=== PATIENT | female | born 1965 | race Caucasian/White ===

== ENCOUNTER 2023-08-08 12:54 | Emergency (ER) | payer OTHER ==
[2023-08-08 13:02] VITALS: BP 124/69; PULSE 78; RESP 16; TEMP 97.9; BMI 32.9
[2023-08-08] MEDS ORDERED: HYDROmorphone HCL/PF 1 MG/ML VIAL ONE (13:40)
[2023-08-08] MEDS ORDERED: LIDOCAINE HCL 1%, 10 MG/ML (20ML VIAL) ONE (13:41)
[2023-08-08] MEDS: HYDROmorphone HCl 2 MG/ML VIAL IVPUSH ONE (13:50)
[2023-08-08] MEDS: LIDOCAINE HCL 1%, 10 MG/ML (50 mL VIAL) SQ ONE (14:32)
== END 2023-08-08 16:05 | disposition home or self-care (01) ==
LOC: FER 12:54
PROC: 2W3CX1Z Immobilization of Right Lower Arm using Splint (ICD-10-PCS; principal; 2023-08-08)
PROC: 3E033NZ Introduction of Analgesics, Hypnotics, Sedatives into Peripheral Vein, Percutaneous Approach (ICD-10-PCS; 2023-08-08)
DX: S52.591A Other fractures of lower end of right radius, initial encounter for closed fracture (principal); W01.0XXA Fall on same level from slipping, tripping and stumbling without subsequent striking against object, initial encounter
CPT/HCPCS: 73110-TC-RT-FY; 73130-TC-RT-FY; 99284-25

== ENCOUNTER 2024-08-13 20:14 | Observation (INO) | payer OTHER ==
[2024-08-13] MEDS ORDERED: ALBUTEROL SO4 2.5/IPRATROPIUM 0.5 INH SOL 3 ML VIAL.NEB. NEB ONE ×2 (21:14→22:41)
[2024-08-13] MEDS ORDERED: methylPREDNISolone NA SUCC 125 MG/2 ML VIAL ONE (21:14)
[2024-08-13] MEDS ORDERED: ACETAMINOPHEN INJECTION 100 ML ONE (21:14)
[2024-08-13] MEDS: ACETAMINOPHEN 1000 MG/100 ML BAG IVPB ONE (21:30)
[2024-08-13] MEDS: SODIUM CHLORIDE 0.9% 1000 ML INFUS.BAG IV ONE (21:30)
[2024-08-13] MEDS: methylPREDNISolone NA SUCC 125 MG/2 ML VIAL IVPB ONE (21:35)
[2024-08-13] MEDS: ALBUTEROL SO4 2.5/IPRATROPIUM 0.5 INH SOL 3 ML VIAL.NEB. NEB ONE ×2 (21:40→22:43)
[2024-08-13 21:45] LABS: HEMATOCRIT 39.3 % (32.4-45.2); HEMOGLOBIN 13.7 G/dL (10.7-15.3); MCH 30.9 pg (25.7-33.7); MCHC 34.8 g/dl (32.0-36.0); MEAN PLT VOLUME 8.9 fl (7.5-11.1); PLATELET COUNT 248.9 10^3/uL (134-434); RBC 4.42 10^6/uL (3.60-5.2); WHITE BLOOD COUNT 16.7 10^3/uL (4.0-10.8)
[2024-08-13 22:02] LABS: INR 1.05 (0.83-1.09)
[2024-08-13] MEDS ORDERED: cefTRIAXone SODIUM 1 GM VIAL ONE (22:04)
[2024-08-13 22:05] LABS: ACTIVATED PTT 28.4 SECONDS (25.2-36.5)
[2024-08-13] MEDS: CEFTRIAXONE 1 GM in DEXTROSE 5%-WATER - 50 ML IVPB ONE (22:08)
[2024-08-13] MEDS ORDERED: AZITHROMYCIN 500 MG VIAL IVPB ONE (22:10)
[2024-08-13 22:11] LABS: ALBUMIN 4.2 g/dl (3.4-5.0); BILIRUBIN,TOTAL 0.3 mg/dl (0.2-1); CALCIUM 9.4 mg/dl (8.5-10.1); CREATININE 0.5 mg/dl (0.6-1.3); POTASSIUM 3.7 mmol/L (3.5-5.1); TOT PROT 7.4 g/dl (6.4-8.2)
[2024-08-13] MEDS: AZITHROMYCIN IVPB 500 MG in DEXTROSE 5%-WATER - 250 ML IVPB ONE (22:25)
[2024-08-14 02:57] VITALS: BMI 21.3
[2024-08-14 09:51] LABS: HEMATOCRIT 38.5 % (32.4-45.2); HEMOGLOBIN 13.3 GM/dL (10.7-15.3); MCH 30.7 pg (25.7-33.7); MCHC 34.7 g/dl (32.0-36.0); MEAN CELL VOLUME 88.5 fl (80-96); MEAN PLT VOLUME 8.9 fl (7.5-11.1); PLATELET COUNT 245 10^3/uL (134-434); RBC 4.35 M/mm3 (3.60-5.2); RDW 13.8 % (11.6-15.6); WHITE BLOOD COUNT 9.9 K/mm3 (4.0-10.0)
[2024-08-14] MEDS: methylPREDNISolone NA SUCC 40 MG/1 ML VIAL IVPUSH SCH ×2 (10:19→18:11)
[2024-08-14 10:26] LABS: ANISOCYTOSIS 0; MACROCYTOSIS 0
[2024-08-14] MEDS: ALBUTEROL SO4 2.5/IPRATROPIUM 0.5 INH SOL 3 ML VIAL.NEB. NEB PRN (12:11)
[2024-08-14] MEDS ORDERED: REFRIGERATED ANITBIOTICS ONE (15:37)
[2024-08-14] MEDS: NICOTINE 14 MG/24 HOURS TOPICAL PATCH TD SCH (17:41)
[2024-08-14] MEDS: NICOTINE 21 MG/24 HOURS TOPICAL PATCH TD SCH (18:11)
[2024-08-14] MEDS: CEFTRIAXONE 1 G/50 ML PREMIX 50 ML IVPB SCH (22:20)
[2024-08-14] MEDS: AZITHROMYCIN IVPB 500 MG/250 ML BAG IVPB SCH (22:20)
[2024-08-15 09:40] LABS: ALBUMIN 3.7 g/dl (3.4-5.0); BILIRUBIN,TOTAL 0.2 mg/dl (0.2-1); CREATININE 0.4 mg/dl (0.6-1.3); POTASSIUM 4.6 mmol/L (3.5-5.1); TOT PROT 6.4 g/dl (6.4-8.2)
[2024-08-15 12:02] LABS: BASO % 0.1 % (0-2.0); HEMATOCRIT 39.9 % (32.4-45.2); HEMOGLOBIN 13.4 GM/dL (10.7-15.3); LYMPH % 11.2 % (8-40); MCH 29.9 pg (25.7-33.7); MCHC 33.5 g/dl (32.0-36.0); MEAN CELL VOLUME 89.1 fl (80-96); MEAN PLT VOLUME 9.1 fl (7.5-11.1); MONO % 2.4 % (3.8-10.2); NEUT % 86.3 % (42.8-82.8); PLATELET COUNT 197 10^3/uL (134-434); RBC 4.48 M/mm3 (3.60-5.2); RDW 13.8 % (11.6-15.6); WHITE BLOOD COUNT 8.7 K/mm3 (4.0-10.0)
[2024-08-15] MEDS: guaiFENesin 600 MG TABLET.ER (FP) PO SCH (13:04)
[2024-08-15] MEDS: FLUTICASONE PROP 0.05% 16 GM NASAL SPRAY NS SCH (13:04)
[2024-08-15] MEDS: ALBUTEROL SO4 2.5/IPRATROPIUM 0.5 INH SOL 3 ML VIAL.NEB. NEB SCH (13:52)
[2024-08-15] MEDS: ACETAMINOPHEN 325 MG TABLET (FP) PO PRN (22:20)
[2024-08-16 08:50] LABS: ALBUMIN 3.9 g/dl (3.4-5.0); BILIRUBIN,TOTAL 0.2 mg/dl (0.2-1); CALCIUM 9.4 mg/dl (8.5-10.1); CREATININE 0.5 mg/dl (0.6-1.3); POTASSIUM 5.4 mmol/L (3.5-5.1); TOT PROT 6.8 g/dl (6.4-8.2)
[2024-08-16 09:12] LABS: BASO % 0.1 % (0-2.0); HEMATOCRIT 36.4 % (32.4-45.2); HEMOGLOBIN 12.4 GM/dL (10.7-15.3); LYMPH % 13.3 % (8-40); MCH 30.2 pg (25.7-33.7); MCHC 34.1 g/dl (32.0-36.0); MEAN CELL VOLUME 88.6 fl (80-96); MEAN PLT VOLUME 8.6 fl (7.5-11.1); MONO % 2.5 % (3.8-10.2); NEUT % 84.1 % (42.8-82.8); PLATELET COUNT 271 10^3/uL (134-434); RBC 4.11 M/mm3 (3.60-5.2); RDW 13.9 % (11.6-15.6); WHITE BLOOD COUNT 8.2 K/mm3 (4.0-10.0)
[2024-08-16 10:42] VITALS: RESP 18
[2024-08-16] MEDS: SODIUM ZIRCONIUM CYCLOSILICATE (LOKELMA) 5 GM PACKET PO ONE (11:38)
[2024-08-16 14:06] VITALS: BP 105/65; PULSE 68; TEMP 98
== END 2024-08-16 14:00 | disposition home or self-care (01) ==
LOC: FER 20:14 → FM/S 22:24 → UNDOADMOB 08-14 01:38 → FM/S 08-14 01:38
PROVIDERS: ADMIT Internal Medicine
PROC: 3E033NZ Introduction of Analgesics, Hypnotics, Sedatives into Peripheral Vein, Percutaneous Approach (ICD-10-PCS; principal; 2024-08-13)
PROC: 3E0F7GC Introduction of Other Therapeutic Substance into Respiratory Tract, Via Natural or Artificial Opening (ICD-10-PCS; 2024-08-13)
PROC: 3E03329 Introduction of Other Anti-infective into Peripheral Vein, Percutaneous Approach (ICD-10-PCS; 2024-08-13)
PROC: 3E033GC Introduction of Other Therapeutic Substance into Peripheral Vein, Percutaneous Approach (ICD-10-PCS; 2024-08-13)
PROC: 3E0337Z Introduction of Electrolytic and Water Balance Substance into Peripheral Vein, Percutaneous Approach (ICD-10-PCS; 2024-08-13)
DX: J44.1 Chronic obstructive pulmonary disease with (acute) exacerbation (principal); R09.02 Hypoxemia; J18.9 Pneumonia, unspecified organism; F17.210 Nicotine dependence, cigarettes, uncomplicated
CPT/HCPCS: 0241U-QW; 36415; 71046-TC-FY; 71275-TC; 80053; 83605; 84484; 85025; 85027; 85610; 85730; 87040; 87899; 93005; 94640; 96365; 96366; 96367; 96375; 96376; 99285-25; G0378; J0131; Q9967